=== PATIENT | female | born 1990 | race Two or more races ===

== ENCOUNTER 2024-07-15 12:15 | Outpatient (CLI) | payer OTHER | END 2024-07-15 12:25 | disposition home or self-care (01) | LOC: PRENATAL 12:15 | PROVIDERS: ATTEND Obstetrics & Gynecology Maternal & Fetal Medicine | DX: O44.00 Complete placenta previa NOS or without hemorrhage, unspecified trimester (principal); O09.519 Supervision of elderly primigravida, unspecified trimester; O09.819 Supervision of pregnancy resulting from assisted reproductive technology, unspecified trimester; O36.1999 Maternal care for other isoimmunization, unspecified trimester, other fetus; Z3A.25 25 weeks gestation of pregnancy ==

== ENCOUNTER 2024-09-02 15:04 | Outpatient (CLI) | payer OTHER | END 2024-09-02 15:06 | disposition home or self-care (01) | LOC: PRENATAL 15:04 | PROVIDERS: ATTEND Obstetrics & Gynecology Maternal & Fetal Medicine | DX: O26.849 Uterine size-date discrepancy, unspecified trimester (principal); O36.8199 Decreased fetal movements, unspecified trimester, other fetus; O09.519 Supervision of elderly primigravida, unspecified trimester; O09.819 Supervision of pregnancy resulting from assisted reproductive technology, unspecified trimester; O36.1999 Maternal care for other isoimmunization, unspecified trimester, other fetus; Z3A.32 32 weeks gestation of pregnancy ==

== ENCOUNTER 2024-10-06 20:32 | Inpatient (IN) | payer OTHER ==
[~2024-10-06] VITALS: Ht 162.6 cm; Wt 2.7 kg
[2024-10-06 19:21] VITALS: BP 144/85
[2024-10-06] MEDS ORDERED: PRENATABS RX T1 EACH PO (20:59)
[2024-10-06] MEDS ORDERED: RINGERS SOLUTION,LACTATED 1,000 ML IV SCH (21:00)
[2024-10-06 21:18] LABS: HEMATOCRIT 36.3 % (36.0-45.00); HEMOGLOBIN 12.5 g/dL (12.0-15.00); MEAN CELL VOLUME 90.6 fL (80.00-100.00); MEAN CORPUSCULAR HEMOGLOBIN 31.1 pg (27.00-32.0); MEAN CORPUSCULAR HGB CONC 34.3 g/dl (32.0-36.0); PLATELET COUNT 145 K/uL (150-450); RED BLOOD COUNT 4.01 M/uL (4.00-6.00); RED CELL DISTRIBUTION WIDTH 13.7 % (11.5-14.5)
[2024-10-06 21:35] LABS: INR < 0.93; PARTIAL THROMBOPLASTIN TIME 26.2 SECONDS (22.0-34.0); PROTHROMBIN TIME 9.8 SECONDS (9.0-11.5)
[2024-10-06 23:18] VITALS: BP 142/73
[2024-10-07 03:38] VITALS: BP 102/61
[2024-10-07] MEDS ORDERED: OXYTOCIN 10 UNITS/ML VIAL ONE (13:07)
[2024-10-07] MEDS ORDERED: ERYTHROMYCIN BASE OPHT 1GM EACH TUBE OP ONE (13:07)
[2024-10-07] MEDS ORDERED: CEFAZOLIN SODIUM 1,000 MG VIAL ONE (14:18)
[2024-10-07] MEDS ORDERED: LABETALOL HCL 100 MG/20 ML ML ONE (18:08)
[2024-10-07] MEDS ORDERED: LABETALOL HCL 100 MG/20 ML ML IV ONE (22:00)
[2024-10-08] MEDS ORDERED: LABETALOL HCL 100 MG/20 ML ML IV ONE (01:00)
[2024-10-08] MEDS ORDERED: RINGERS SOLUTION,LACTATED 1,000 ML IV SCH (07:15)
[2024-10-08 08:53] VITALS: BP 160/80
[2024-10-08] MEDS ORDERED: LABETALOL HCL 200 MG TABLET PO SCH ×2 (08:59→09:00)
[2024-10-08] MEDS ORDERED: MORPHINE SULFATE 4 MG/ML CARTRIDGE IV SCH (09:00)
[2024-10-08] MEDS ORDERED: MAGNESIUM SULFATE IN WATER 0.04 GM/ML IV.SOLN IV ONE (09:39)
[2024-10-08] MEDS ORDERED: MAGNESIUM SULFATE IN WATER 500 ML IV SCH (09:45)
[2024-10-08 10:10] VITALS: BP 145/82
[2024-10-08 12:18] LABS: HEMATOCRIT 37.9 % (36.0-45.00); HEMOGLOBIN 12.8 g/dL (12.0-15.00); MEAN CORPUSCULAR HEMOGLOBIN 30.8 pg (27.00-32.0); MEAN CORPUSCULAR HGB CONC 33.8 g/dl (32.0-36.0); PLATELET COUNT 142 K/uL (150-450); RED BLOOD COUNT 4.16 M/uL (4.00-6.00); RED CELL DISTRIBUTION WIDTH 13.6 % (11.5-14.5)
[2024-10-08 12:38] VITALS: BP 142/83
[2024-10-08 12:43] LABS: BILIRUBIN TOTAL 0.46 mg/dL (0.3-1.2); CALCIUM 8.2 mg/dL (8.5-10.1); CREATININE SERUM 0.67 mg/dL (0.55-1.02); GFR 99.59; GLOBULINA 2.9 G/DL (2.4-3.5); POTASSIUM 4.36 mEq/L (3.5-5.1); TOTAL PROTEIN 4.9 gm/dL (6.4-8.2)
[2024-10-08 15:11] VITALS: BP 144/85
[2024-10-08] MEDS ORDERED: OxyCODONE HCL 5 MG TABLET (ROXICODONE) PO PRN (17:00)
[2024-10-08 20:00] VITALS: BP 132/73
[2024-10-08 23:32] VITALS: BP 131/72
[2024-10-09 03:43] VITALS: BP 144/82
[2024-10-09 06:13] VITALS: BP 111/66; O2SAT 97
[2024-10-09 11:12] VITALS: BP 130/80
[2024-10-09 11:40] VITALS: BP 132/84
[2024-10-09] MEDS ORDERED: FF) RHO(D) IMMUNE GLOBULIN (POM) IM ONE (12:00)
[2024-10-09 16:14] VITALS: BP 160/80
[2024-10-09 17:14] VITALS: BP 146/60
[2024-10-10 00:47] VITALS: BP 135/75
[2024-10-10 09:22] VITALS: BP 140/85
== END 2024-10-10 16:45 | disposition home or self-care (01) | DRG 788 ==
LOC: OB/GYN 20:32 → LDR 20:32 → OB/GYN 10-08 08:15
PROVIDERS: ADMIT Obstetrics & Gynecology; ATTEND Obstetrics & Gynecology
PROC: 4A1HXCZ Monitoring of Products of Conception, Cardiac Rate, External Approach (ICD-10-PCS; 2024-10-06)
PROC: 10D00Z1 Extraction of Products of Conception, Low, Open Approach (ICD-10-PCS; principal; 2024-10-08)
DX: O14.14 Severe pre-eclampsia complicating childbirth (principal); Z3A.37 37 weeks gestation of pregnancy; Z37.0 Single live birth
CPT/HCPCS: 70546